=== PATIENT | female | born 2000 | race Caucasian/White ===

== ENCOUNTER 2022-07-02 17:42 | Emergency (ER) | payer BC ==
[~2022-07-02] VITALS: Ht 160 cm; Wt 51.3 kg
[2022-07-02 17:58] VITALS: BP 130/86
--- NOTE | 2022-07-02 17:58 | NUR ---
BIBS C/O FEELING LIGHTHEADED, WEAK, AND FATIGUED, HAD A GAS LEAK AT HOME THOUGHT THEY FIXED IT. WENT TO URGENT CARE CONCERNED OF CO2 POISONING. VITALS ARE WITHIN NORMAL LIMITS. AWAITING MD GRIFFIN.
--- NOTE | 2022-07-02 18:21 | NUR ---
ADMITTING ASKED PT FOR THEIR COPAY, PT ELOPED FROM THE FACILITY.
== END 2022-07-02 18:25 | disposition left against medical advice (07) ==
LOC: ER 18:02
DX: Z53.21 Procedure and treatment not carried out due to patient leaving prior to being seen by health care provider (principal)